=== PATIENT | male | born 1995 | race African-American/Black ===

== ENCOUNTER 2018-12-04 19:49 | Emergency (ER) | payer OTHER ==
--- NOTE | 2018-12-04 20:23 | PDOC ---
Rapid Medical Evaluation Medical Evaluation: Allergies Allergy/AdvReac Type Severity Reaction Status Date / Time No Known Allergies Allergy Verified 12/04/18 20:20 I have performed a brief in-person evaluation of this patient. The patient presents with a chief complaint of: C/O itching at tip of penis x 3 days; denies penile discharge, urinary complaints, fever; sexually active with 1 partner (who does not have any c/o rash or other unusual symptoms) Pertinent physical exam findings: Deferred to main ED I have ordered the following: Nothing The patient will proceed to the ED for further evaluation. 12/04/18 20:20
[2018-12-04 20:25] VITALS: BP 147/91; PULSE 85; TEMP 98.3; BMI 24.6
--- NOTE | 2018-12-04 21:19 | PDOC ---
History of Present Illness - General Chief Complaint: Rash Stated Complaint: ITCHING Time Seen by Provider: 12/04/18 21:11 - History of Present Illness Initial Comments: 12/04/18 21:17 22-year-old male presents for evaluation of lesions on his penis 2 days. He has no discharge or systemic symptoms. Past History - Past Medical History Allergies/Adverse Reactions: Allergies Allergy/AdvReac Type Severity Reaction Status Date / Time No Known Allergies Allergy Verified 12/04/18 20:20 Home Medications: Ambulatory Orders Acyclovir [Zovirax -] 200 mg PO 5XD #50 capsule 12/04/18 Levothyroxine [Synthroid -] 125 mcg PO DAILY 12/04/18 - Suicide/Smoking/Psychosocial Hx Smoking History: Never smoked Hx Alcohol Use: No Drug/Substance Use Hx: No Review of Systems - Review of Systems : Yes: See HPI *Physical Exam - Vital Signs Last Vital Signs Temp Pulse Resp BP Pulse Ox 98.3 F 85 18 147/91 98 12/04/18 20:20 12/04/18 20:20 12/04/18 20:20 12/04/18 20:20 12/04/18 20:20 - Physical Exam Comments: 12/04/18 21:17 HEAD: NC/AT EYES: Conjuntiva clear : The foreskin was pulled back there are small vesicular lesions at the glans of the penis without indication of secondary infection MS: Full ROM in all joints without edema NEUROLOGIC: No gross sensory or motor deficits, NVID SKIN: Normal color and temperature no lesions or rashes Moderate Sedation - Procedure Monitoring Vital Signs: Procedure Monitoring Vital Signs Temperature 98.3 F 12/04/18 20:20 Pulse Rate 85 12/04/18 20:20 Respiratory Rate 18 12/04/18 20:20 Blood Pressure 147/91 12/04/18 20:20 O2 Sat by Pulse Oximetry (%) 98 12/04/18 20:20 *DC/Admit/Observation/Transfer Diagnosis at time of Disposition: Herpes genitalia - Discharge Dispostion Disposition: HOME Condition at time of disposition: Stable Decision to Admit order: No - Prescriptions Prescriptions: Acyclovir [Zovirax -] 200 mg PO 5XD #50 capsule - Referrals Referrals: Liliam Shaw MD [Primary Care Provider] - - Patient Instructions Printed Discharge Instructions: Genital Herpes Additional Instructions: Medication as directed. Return to the emergency room should symptoms worsen or go unresolved and follow-up with your primary care physician in one to 2 days for further evaluation and treatment options. - Post Discharge Activity
== END 2018-12-04 21:24 | disposition home or self-care (01) ==
LOC: JERFT 19:49
DX: A60.01 Herpesviral infection of penis (principal)
CPT/HCPCS: 99281-25